=== PATIENT | female | born 1995 | race African-American/Black ===

== ENCOUNTER 2019-02-01 12:38 | Emergency (ER) | payer MEDICAID ==
[~2019-02-01] VITALS: Ht 172.7 cm; Wt 130.0 kg
[2019-02-01 14:15] LABS: BASOPHILS % 0.9 % (0.0-2.0); EOSINOPHILS % 0.5 % (0.0-5.0); HEMATOCRIT. 41.5 % (36.0-48.0); HEMOGLOBIN. 13.9 g/dL (12.0-16.0); LYMPHOCYTES % 29.5 % (20.0-50.0); MEAN CORPUSCULAR HEMOGLOBIN 28.7 pg (28.0-32.0); MEAN CORPUSCULAR VOLUME 85.9 fL (81.0-99.0); MEAN PLATELET VOLUME 8.4 fl (7.4-10.4); MONOCYTES % 7.2 % (2.0-8.0); NEUTROPHILS % 61.9 % (40.0-76.0); PLATELET 383 x1000/uL (130-400); RED BLOOD CELL COUNT 4.83 mill/uL (4.2-5.4); RED CELL DISTRIBUTION WIDTH 13.9 % (11.6-14.6)
[2019-02-01 14:22] LABS: CHLORIDE 108 mEq/L (98-107)
[2019-02-01 14:28] LABS: ETHANOL BLOOD < 10 mg/dL
[2019-02-01 14:32] LABS: CREATINE KINASE 135 IU/L (26-192)
[2019-02-01 15:18] LABS: *COCAINE SCREEN URINE NEGATIVE (NEGATIVE)
[2019-02-01 15:19] LABS: *BARBITURATES SCREEN URINE NEGATIVE (NEGATIVE); METHADONE URINE SCREEN NEGATIVE (NEGATIVE); OPIATES URINE SCREEN NEGATIVE (NEGATIVE); PHENCYCLIDINE URINE SCREEN NEGATIVE (NEGATIVE)
[2019-02-01 15:20] LABS: *AMPHETAMINES SCREEN URINE NEGATIVE (NEGATIVE); *BENZODIAZEPINES SCREEN URINE NEGATIVE (NEGATIVE)
[2019-02-01 15:23] LABS: CANNABINOID URINE SCREEN PRESUMTIVE POSITIVE (NEGATIVE)
[2019-02-01] MEDS ORDERED: MAGNESIUM/ALUMINUM HYDROXIDE/SIMETHICONE 30ML UDC PO STA ×2 (17:31)
[2019-02-01] MEDS ORDERED: VISCOUS LIDOCAINE 2% 15 ML UDC PO STA (17:32)
[2019-02-01 17:43] LABS: CHLORIDE 109 mEq/L (98-107)
[2019-02-01] MEDS ORDERED: FAMOTIDINE 20MG TABLET PO ONE (17:45)
[2019-02-01] MEDS ORDERED: ACETAMINOPHEN 325MG TABLET PO ONE (20:45)
[2019-02-01 21:58] LABS: CHLORIDE 108 mEq/L (98-107)
[2019-02-01] MEDS ORDERED: ONDANSETRON 4MG ODT PO ONE (22:30)
[2019-02-02 07:00] VITALS: BP 127/73
== END 2019-02-02 13:00 | disposition home or self-care (01) ==
LOC: ER 13:04
DX: T39.312A Poisoning by propionic acid derivatives, intentional self-harm, initial encounter (principal); R45.851 Suicidal ideations; F12.10 Cannabis abuse, uncomplicated; F31.9 Bipolar disorder, unspecified; I49.9 Cardiac arrhythmia, unspecified; Z72.89 Other problems related to lifestyle; Y92.89 Other specified places as the place of occurrence of the external cause
CPT/HCPCS: 36415; 80053; 80305; 80307; 80320; 80329; 81025; 82550; 85025; 93005; 99284; Q0162; G0480